=== PATIENT | female | born 1965 | race Caucasian/White ===

== ENCOUNTER → 2018-09-04 | Outpatient (CLI) | payer BC ==
--- NOTE | 2018-09-07 10:46 | PCVCIMAG ---
APPROVED REPORT Study performed: 09/04/2018 15:23:53 Exam: Stress Echocardiogram Indication: chest pain, fam hx cad, hlp Patient Location: Echo lab Stress Nurse: Apple Galvan RN Status: routine Ht: 5 ft 5 in HR: 71 bpm BP: 104/72 mmHg Rhythm: NSR Procedure The patient underwent an Exercise Stress Test using the Don Protocol. Blood pressure, heart rate, and EKG were monitored. An Echocardiogram was performed by radiation therapy technician in four stages in quad fashion. At peak stress, four selected images were obtained and placed side by side with resting images for comparison. Stress Test Details Stress Test: Exercise stress testing was performed using a Don protocol. HR Resting HR: 71 bpmMax Heart Rate (APMHR): 167 bpm Max HR Achieved: 166 bpmTarget HR (85% APMHR): 141 bpm % of APMHR: 99 Recovery HR: 76 bpm HR response to stress: Normal HR response to stress BP Resting BP: 104/72 mmHg Max BP: 134/68 mmHg Recovery BP: 118/64 mmHg BP response to stress: Normal blood pressure response to stress. ECG Resting ECG: Sinus Rhythm Stress ECG: Sinus Rhythm ST Change: Normal Arrhythmia: frequent PVCs Recovery ECG: Sinus Rhythm Recovery ST Change: Normal Recovery Arrhythmia: PVCs Clinical Reason for Termination: Maximal effort Stress Symptoms: one sharp pain in chest that resolved within seconds, did not elicit chest pain with exertion Exercise duration: 12 min sec Highest Stage Achieved: Stage 4: 4.2 mph at 16% grade. Exercise capacity: 13.4 METs Overall Exercise Capacity for Age: Good Scale: Active Angina Score: None Pre-Stress Echo The resting Echocardiogram showed normal left ventricular contractility with an estimated Ejection Fraction of about >55%. Normal wall motion in all segments on baseline images. Post-Stress Echo The stress Echocardiogram showed normal left ventricular contractility with an estimated Ejection Fraction of about 65%. Normal augmentation of wall motion in all segments on post stress images. Clinical No clinical or ECG evidence for ischemia. Conclusion Clinical Response: Non-ischemic Exercise Capacity: Superior Stress ECG Response: Non-ischemic Stress Echo Images: Non-ischemic The left ventricle is normal in size and wall thickness in both the rest and stress images. Myxomatous mitral valve leaflet appearance with mild anterior mitral valve prolapse. Trivial mitral regurgitation posteriorly directed. Other Information Study Quality: Adequate <Conclusion> The left ventricle is normal in size and wall thickness in both the rest and stress images. Myxomatous mitral valve leaflet appearance with mild anterior mitral valve prolapse. Trivial mitral regurgitation posteriorly directed.
== END | disposition home or self-care (01) ==
LOC: PCVCIMAG 13:00
PROVIDERS: ATTEND Internal Medicine Cardiovascular Disease
DX: I34.1 Nonrheumatic mitral (valve) prolapse (principal); R00.2 Palpitations; R07.89 Other chest pain; E78.5 Hyperlipidemia, unspecified; Z82.49 Family history of ischemic heart disease and other diseases of the circulatory system
CPT/HCPCS: 93325; 93351